=== PATIENT | female | born 1940 | race Caucasian/White ===

== ENCOUNTER 2017-11-03 08:42 | Day surgery (SDC) | payer MEDICARE ==
[~2017-11-03 08:42] MED LIST: CEPH250A; CONEST.625; DEPLIN-ALGAL O1 EAC1; ESCI10 PO; ESTROGEN GEL; ESZO3; GABA100 PO; HYDACE5; OMEP20ER PO; PANT40; ZOLP10
[2018-06-04] MEDS ORDERED: Cipro500 MG PO (15:59)
[2018-07-11] MEDS ORDERED: ESCI10 PO (13:36)
[2018-07-11] MEDS ORDERED: XARELTO20 MG PO (13:36)
[2018-07-11] MEDS ORDERED: BELSOMRA5 MG PO (13:37)
[2018-07-11] MEDS ORDERED: Roxicodone5 MG PO (13:38)
[2018-07-11] MEDS ORDERED: Ipratropium Bro15 ML (13:38)
[2018-07-11] MEDS ORDERED: GABA600 PO ×2 (13:39)
[2018-07-11] MEDS ORDERED: CHOL10002 PO (13:40)
[2018-07-11] MEDS ORDERED: BACL10 PO (13:40)
[2018-07-11] MEDS ORDERED: Cascara Sagrad473 ML PO (13:41)
[2018-07-11] MEDS ORDERED: BIOTIN2500 MCG PO (13:41)
[2018-07-11] MEDS ORDERED: CONEST.625 PO (13:42)
[2018-07-11] MEDS ORDERED: GENTEAL TEARS 015 M1 BOTHEYES (13:42)
[2018-07-11] MEDS ORDERED: VAGIFEM10 MCG VAG (13:43)
[2018-07-11] MEDS ORDERED: COQ1050 MG PO (13:43)
[2018-07-11] MEDS ORDERED: VITAMIN B122500 MC1 PO (13:43)
[2018-07-11] MEDS ORDERED: DIFICID200 MG PO (13:44)
[2018-07-11] MEDS ORDERED: [UNRECOGNIZED DRUG - OTHER] PO (13:44)
[2018-07-22] MEDS ORDERED: CILO100 PO (10:58)
[2018-07-22] MEDS ORDERED: VANC125 PO (10:59)
[2018-07-22] MEDS ORDERED: PANT40 PO (10:59)
[2018-07-22] MEDS ORDERED: VAGIFEM10 MCG VAG (18:29)
[2018-07-22] MEDS ORDERED: CONEST.625 PO (18:29)
[2018-07-22] MEDS ORDERED: BELSOMRA10 MG PO (18:30)
[2018-07-22] MEDS ORDERED: MIRALAX17 GM PO (18:31)
[2018-07-22] MEDS ORDERED: Hair, Skin & N1 EACH PO (18:34)
[2018-07-25] MEDS ORDERED: CIPR250 PO (11:41)
[2018-07-25] MEDS ORDERED: OSCIMIN SL0.125 MG SL (11:42)
[2018-07-25] MEDS ORDERED: ACIDOPHILUS1 EAC1 PO (11:43)
[2018-07-25] MEDS ORDERED: VANC125 PO (11:44)
[2018-07-25] MEDS ORDERED: POTCHL20ER PO (11:44)
[2018-07-25] MEDS ORDERED: LOPE2C PO (11:45)
== END 2017-11-03 22:38 | disposition home or self-care (01) ==
LOC: CT 08:42
PROVIDERS: Radiology Diagnostic Radiology
PROC: B02B1ZZ Computerized Tomography (CT Scan) of Spinal Cord using Low Osmolar Contrast (ICD-10-PCS; principal; 2017-11-03 11:00)
DX: M47.26 Other spondylosis with radiculopathy, lumbar region (principal); M51.16 Intervertebral disc disorders with radiculopathy, lumbar region; Z98.1 Arthrodesis status
CPT/HCPCS: 62304; 72132; Q9966

== ENCOUNTER → 2017-12-14 | Outpatient (CLI) | payer MEDICARE ==
[~2017-12-14] MED LIST changes: +ESCI10; -ESCI10 PO; +GABA100; -GABA100 PO
[2017-12-14 12:07] LABS: Source, Urine Clean Catch
[2017-12-14 14:09] LABS: Bilirubin, Urine Neg (Neg); Blood, Urine 1+ (Neg); Glucose Qualitative, Urine Neg (Neg); Ketones, Urine Neg (Neg); Leukocyte Esterase, Urine 2+ (Neg); Nitrite, Urine Neg (Neg); Protein, Urine Neg (Neg); Specific Gravity, Urine 1.015 (1.003-1.022); Urobilinogen, Urine NORM (Normal)
[2017-12-14 14:18] LABS: Appearance, Urine Clear (Clear); Color, Urine Yellow (P-Yellow)
[2017-12-14 14:19] LABS: Bacteria Few /hpf; Red Blood Cells, Urine 0-2 /hpf (0-2); Squamous Epithelial Cells Few /hpf (Few)
== END | disposition home or self-care (01) ==
LOC: OLS 12:05 → LAB SHORT 12:05 → EDSTATUS 12-14 11:50 → LAB FUT 12-14 11:50
PROVIDERS: Internal Medicine
DX: R31.9 Hematuria, unspecified (principal)
CPT/HCPCS: 81001; 87086

== ENCOUNTER → 2018-02-28 | Outpatient (CLI) | payer MEDICARE ==
[2018-02-28 14:41] LABS: Source, Urine Clean Catch
[2018-02-28 18:00] LABS: Bilirubin, Urine Neg (Neg); Blood, Urine 1+ (Neg); Glucose Qualitative, Urine Neg (Neg); Ketones, Urine Neg (Neg); Leukocyte Esterase, Urine Neg (Neg); Nitrite, Urine Neg (Neg); Protein, Urine Neg (Neg); Specific Gravity, Urine 1.015 (1.003-1.022); Urobilinogen, Urine NORM (Normal)
[2018-02-28 18:10] LABS: Appearance, Urine Clear (Clear); Color, Urine Yellow (P-Yellow)
[2018-02-28 18:12] LABS: Bacteria Few /hpf; Red Blood Cells, Urine 0-2 /hpf (0-2); Squamous Epithelial Cells Few /hpf (Few); White Blood Cells, Urine 0-2 /hpf (0-5)
== END | disposition home or self-care (01) ==
LOC: LAB 14:39 → LAB SHORT 14:39 → EDSTATUS 02-28 12:25 → LAB FUT 02-28 12:25
PROVIDERS: Internal Medicine
DX: R30.0 Dysuria (principal)
CPT/HCPCS: 81001

== ENCOUNTER 2018-03-07 08:01 | Day surgery (SDC) | payer MEDICARE ==
[~2018-03-07 08:01] MED LIST changes: -ESCI10; +ESCI10 PO; -GABA100; +GABA100 PO
[2018-03-07] MEDS ORDERED: Ipratropium Bro30 ML (10:53)
[2018-03-07] MEDS ORDERED: BIOTIN2500 MCG PO (10:54)
[2018-03-07] MEDS ORDERED: VITAMIN D2000 UNIT PO (10:54)
[2018-03-07] MEDS ORDERED: Cascara Sagrad473 ML PO (10:56)
[2018-03-07] MEDS ORDERED: GENTEAL TEARS 015 M1 BOTHEYES (10:56)
[2018-03-07] MEDS ORDERED: OXYC5 PO (10:57)
[2018-03-07] MEDS ORDERED: OXYC10ER (10:57)
[2018-03-07] MEDS ORDERED: VAGIFEM10 MCG VAG (11:00)
[2018-03-07] MEDS ORDERED: BELSOMRA10 MG PO (11:01)
== END 2018-03-07 09:18 | disposition home or self-care (01) ==
LOC: ATC 08:01
DX: R30.0 Dysuria (principal)
CPT/HCPCS: 51798

== ENCOUNTER → 2018-06-21 | Outpatient (CLI) | payer MEDICARE ==
[~2018-06-21] MED LIST changes: +BELSOMRA10 MG PO; +BIOTIN2500 MCG PO; +Cascara Sagrad473 ML PO; +Cipro500 MG PO; +GENTEAL TEARS 015 M1 BOTHEYES; +Ipratropium Bro30 ML; +OXYC10ER; +OXYC5 PO; +VAGIFEM10 MCG VAG; +VITAMIN D2000 UNIT PO
[2018-06-21 18:21] LABS: Adenovirus F 40/41 Not Detected (NOT DETECT); Astrovirus Not Detected (NOT DETECT); Campylobacter Sp Not Detected (NOT DETECT); Cryptosporidium Not Detected (NOT DETECT); Cyclospora Cayetanensis Not Detected (NOT DETECT); E. Coli O157 Not Detected (NOT DETECT); Entamoeba Histolytica Not Detected (NOT DETECT); Enteroaggregative E. coli-EAEC Not Detected (NOT DETECT); Enteropathogenic E. coli-EPEC Not Detected (NOT DETECT); Enterotoxigenic E. coli-ETEC Not Detected (NOT DETECT); Giardia Lamblia Not Detected (NOT DETECT); Norovirus GI/GII Not Detected (NOT DETECT); Plesiomonas Shigelloides Not Detected (NOT DETECT); Rotavirus A Not Detected (NOT DETECT); Salmonella Sp Not Detected (NOT DETECT); Sapovirus Not Detected (NOT DETECT); Shiga Toxin-prod E. coli-STEC Not Detected (NOT DETECT); Shigella/Enteroin E. coli-EIEC Not Detected (NOT DETECT); Vibrio Cholerae Not Detected (NOT DETECT); Vibrio Sp Not Detected (NOT DETECT); Yersinia Enterocolitica Not Detected (NOT DETECT)
== END | disposition home or self-care (01) ==
LOC: LAB 17:45 → LAB SHORT 17:45 → EDSTATUS 06-21 10:25 → LAB FUT 06-21 10:25
PROVIDERS: Internal Medicine
DX: R19.7 Diarrhea, unspecified (principal)
CPT/HCPCS: 87507

== ENCOUNTER → 2018-09-19 | Outpatient (CLI) | payer MEDICARE ==
[~2018-09-19] MED LIST changes: +ACIDOPHILUS1 EAC1 PO; +BACL10 PO; +BELSOMRA5 MG PO; +CHOL10002 PO; +CILO100 PO; +CIPR250 PO; +CONEST.625 PO; +COQ1050 MG PO; +DIFICID200 MG PO; +GABA600 PO; +Hair, Skin & N1 EACH PO; +Ipratropium Bro15 ML; +LOPE2C PO; +MIRALAX17 GM PO; +OSCIMIN SL0.125 MG SL; +PANT40 PO; +POTCHL20ER PO; +Roxicodone5 MG PO; +VANC125 PO; +VITAMIN B122500 MC1 PO; +XARELTO20 MG PO; +[UNRECOGNIZED DRUG - OTHER] PO
== END | disposition home or self-care (01) ==
LOC: LAB SHORT 13:00 → LAB 13:00 → EDSTATUS 09-18 08:25 → LAB FUT 09-18 08:25
DX: A04.72 Enterocolitis due to Clostridium difficile, not specified as recurrent (principal)
CPT/HCPCS: 87324; 89055

== ENCOUNTER → 2018-11-07 | Outpatient (CLI) | payer MEDICARE ==
[2018-11-07 15:53] LABS: Source, Urine Clean Catch
[2018-11-07 18:22] LABS: Bilirubin, Urine Neg (Neg); Blood, Urine 1+ (Neg); Glucose Qualitative, Urine Neg (Neg); Ketones, Urine Neg (Neg); Leukocyte Esterase, Urine 2+ (Neg); Nitrite, Urine Pos (Neg); Protein, Urine Neg (Neg); Urobilinogen, Urine NORM (Normal)
[2018-11-07 18:42] LABS: Appearance, Urine Hazy (Clear); Color, Urine Yellow (P-Yellow)
[2018-11-07 18:45] LABS: Amorphous Light (0-Heavy); Bacteria Few /hpf; Mucus Light (0-Heavy); Red Blood Cells, Urine 0-2 /hpf (0-2); Squamous Epithelial Cells Mod /hpf (Few); Transitional Epithelial Cells Few /hpf (0-Rare)
== END | disposition home or self-care (01) ==
LOC: LAB SHORT 15:51 → LAB 15:51 → LAB FUT 11-08 09:20 → EDSTATUS 11-08 09:20
PROVIDERS: Internal Medicine
DX: R30.0 Dysuria (principal)
CPT/HCPCS: 81001; 87077; 87086; 87186

== ENCOUNTER → 2018-12-01 | Outpatient (CLI) | payer MEDICARE ==
[2018-12-02 14:09] LABS: C DIFFICILE BY DNA AMP Positive (Negative)
== END | disposition home or self-care (01) ==
LOC: LAB 16:30 → LAB SHORT 16:30
PROVIDERS: Internal Medicine
DX: A04.71 Enterocolitis due to Clostridium difficile, recurrent (principal)
CPT/HCPCS: 87324; 87493

== ENCOUNTER → 2018-12-19 | Outpatient (CLI) | payer MEDICARE ==
[~2018-12-19] MED LIST changes: +ONDA4ODT MM
== END | disposition home or self-care (01) ==
LOC: LAB SHORT 15:10 → LAB 15:10 → LAB FUT 12-01 14:55 → EDSTATUS 12-01 14:55
DX: A04.71 Enterocolitis due to Clostridium difficile, recurrent (principal)
CPT/HCPCS: 87493; 89055

== ENCOUNTER 2018-12-23 17:08 | Emergency (ER) | payer MEDICARE ==
[~2018-12-23] VITALS: Ht 149.9 cm; Wt 43.5 kg
[~2018-12-23 17:08] MED LIST changes: -ONDA4ODT MM
[2018-12-23 19:03] LABS: BASOPHILS ABSOLUTE AUTO 0.02 K/mm3 (0.00-0.23); BASOPHILS PERCENT AUTO 0 % (0-2); EOSINOPHILS ABSOLUTE AUTO 0.02 K/mm3 (0.00-0.68); EOSINOPHILS PERCENT AUTO 0 % (0-6); Hematocrit 35.8 % (33.0-51.0); Hemoglobin 11.6 g/dL (11.5-16.0); IMMATURE GRAN ABSOLUTE AUTO 0.06 K/mm3 (0.00-0.10); IMMATURE GRAN PERCENT AUTO 0 % (0-1); LYMPHOCYTES ABSOLUTE AUTO 1.96 K/mm3 (0.84-5.20); LYMPHOCYTES PERCENT AUTO 14 % (21-46); MONOCYTES ABSOLUTE AUTO 0.82 K/mm3 (0.16-1.47); MONOCYTES PERCENT AUTO 6 % (4-13); Mean Corpuscular HGB 31.8 pg (26.0-34.0); Mean Corpuscular HGB Conc 32.4 g/dL (31.5-36.5); Mean Corpuscular Volume 98 fL (80-100); Mean Platelet Volume 10.4 fL (9.1-12.4); NEUTROPHILS PERCENT AUTO 79 % (41-73); Platelet Count 337 K/mm3 (150-400); RDW Coefficient Variation 13.5 % (11.7-14.2); RDW Standard Deviation 48.8 fL (35.1-46.3); Red Blood Cell Count 3.65 M/mm3 (3.80-5.20); White Blood Cell Count 13.68 K/mm3 (4.00-11.30)
[2018-12-23 19:28] LABS: Alanine Aminotransfer (ALT/SGP 14 U/L (12-78); Albumin, Blood 3.5 g/dL (3.4-5.0); Albumin/Globulin Ratio 0.9 (0.8-1.8); Alk Phos 74 U/L (50-136); Anion Gap 6 mmol/L (6-16); Aspartate Aminotrans (AST/SGOT 18 U/L (12-37); Bilirubin, Total 0.4 mg/dL (0.1-1.0); Blood Urea Nitrogen 16 mg/dL (8-24); CO2, Blood 26 mmol/L (21-32); Calcium, Blood 8.1 mg/dL (8.5-10.1); Chloride, Blood 105 mmol/L (98-108); Globulin, Blood 3.7 g/dL (2.2-4.0); Glomerular Filtration Rate >60 (60-); Glucose, Blood 96 mg/dL (70-99); Potassium, Blood 3.5 mmol/L (3.5-5.5); Sodium, Blood 137 mmol/L (136-145); Total Protein, Blood 7.2 g/dL (6.4-8.2)
[2018-12-23] MEDS ORDERED: ONDA4ODT MM (20:02)
== END 2018-12-23 20:36 | disposition home or self-care (01) ==
LOC: ER 17:08
PROVIDERS: Emergency Medicine
DX: E86.0 Dehydration (principal); R19.7 Diarrhea, unspecified; R11.2 Nausea with vomiting, unspecified; Z88.0 Allergy status to penicillin; Z88.2 Allergy status to sulfonamides; Z88.8 Allergy status to other drugs, medicaments and biological substances; Z79.899 Other long term (current) drug therapy; F17.210 Nicotine dependence, cigarettes, uncomplicated
CPT/HCPCS: 36415; 80053; 85025; 96361; 96374; 99284-25; A9270-GY; J2405; J7030

== ENCOUNTER → 2019-01-18 | Outpatient (CLI) | payer MEDICARE ==
[~2019-01-18] MED LIST changes: +ONDA4ODT MM
[2019-01-18 12:34] LABS: Source, Urine Clean Catch
[2019-01-18 15:38] LABS: Bilirubin, Urine Neg (Neg); Blood, Urine 3+ (Neg); Glucose Qualitative, Urine Neg (Neg); Ketones, Urine Neg (Neg); Leukocyte Esterase, Urine 3+ (Neg); Nitrite, Urine Neg (Neg); Protein, Urine Neg (Neg); Urobilinogen, Urine NORM (Normal)
[2019-01-18 15:46] LABS: Appearance, Urine Hazy (Clear); Color, Urine Yellow (P-Yellow)
[2019-01-18 15:48] LABS: White Blood Cells, Urine TNTC /hpf (0-5)
[2019-01-18 15:49] LABS: Bacteria Few /hpf; Squamous Epithelial Cells Few /hpf (Few); Transitional Epithelial Cells Few /hpf (0-Rare)
== END | disposition home or self-care (01) ==
LOC: LAB SHORT 12:34 → LAB 12:34 → LAB FUT 01-18 09:35
PROVIDERS: Internal Medicine
DX: N39.0 Urinary tract infection, site not specified (principal)
CPT/HCPCS: 81001

== ENCOUNTER 2019-01-20 07:37 | Emergency (ER) | payer MEDICARE ==
[~2019-01-20] VITALS: Ht 149.9 cm; Wt 43.1 kg
[2019-01-20] MEDS ORDERED: CEPH500 PO (07:55)
[2019-01-20] MEDS ORDERED: BUPRENORPHINE HC2 MG SL (08:04)
== END 2019-01-20 08:18 | disposition home or self-care (01) ==
LOC: ER 07:37
DX: N39.0 Urinary tract infection, site not specified (principal); Z88.0 Allergy status to penicillin; Z88.2 Allergy status to sulfonamides; Z88.8 Allergy status to other drugs, medicaments and biological substances; Z88.1 Allergy status to other antibiotic agents; Z79.899 Other long term (current) drug therapy; F17.210 Nicotine dependence, cigarettes, uncomplicated
CPT/HCPCS: 99283

== ENCOUNTER → 2019-01-26 | Outpatient (CLI) | payer MEDICARE ==
[~2019-01-26] MED LIST changes: +BUPRENORPHINE HC2 MG SL; +CEPH500 PO
[2019-01-26 17:24] LABS: Source, Urine Clean Catch
[2019-01-26 17:50] LABS: Blood, Urine 1+ (Neg); Glucose Qualitative, Urine Neg (Neg); Ketones, Urine Neg (Neg); Leukocyte Esterase, Urine Neg (Neg); Nitrite, Urine Neg (Neg); Protein, Urine 1+ (Neg); Urobilinogen, Urine NORM (Normal)
[2019-01-26 17:57] LABS: Appearance, Urine Clear (Clear); Bilirubin, Urine 2+ (Neg); Color, Urine Orange (P-Yellow)
[2019-01-26 17:58] LABS: Yeast/Fungi Urine Few /hpf
[2019-01-26 18:00] LABS: Red Blood Cells, Urine 0-2 /hpf (0-2)
[2019-01-26 18:05] LABS: Bacteria Few /hpf; Calcium Oxalate Crystals Few /hpf; Squamous Epithelial Cells Few /hpf (Few)
[2019-01-26 18:07] LABS: Other Crystals Few /hpf
== END | disposition home or self-care (01) ==
LOC: LAB SHORT 17:23 → LAB 17:23 → EDSTATUS 01-26 17:20 → LAB FUT 01-26 17:20
PROVIDERS: Internal Medicine
DX: N39.0 Urinary tract infection, site not specified (principal)
CPT/HCPCS: 81001

== ENCOUNTER → 2019-02-15 | Outpatient (CLI) | payer MEDICARE ==
[~2019-02-15] MED LIST changes: +Florastor250 MG PO; +HYOS.125 PO; +Ipratropium Bro30 ML NS; +Lexapro 10 mg T10 MG PO; +POTA10T PO; +POTCHL20ER; +VANCOCIN HCL125 MG GT
== END | disposition home or self-care (01) ==
LOC: LAB SHORT 15:00 → LAB 15:00 → LAB FUT 02-14 12:10
DX: A04.72 Enterocolitis due to Clostridium difficile, not specified as recurrent (principal)
CPT/HCPCS: 87493; 89055

== ENCOUNTER → 2019-03-12 | Outpatient (CLI) | payer MEDICARE ==
[2019-03-12 13:17] LABS: C DIFFICILE BY DNA AMP Positive (Negative)
== END | disposition home or self-care (01) ==
LOC: LAB 10:00 → LAB SHORT 10:00 → EDSTATUS 03-12 09:15 → LAB FUT 03-12 09:15
PROVIDERS: Internal Medicine Infectious Disease
DX: A04.72 Enterocolitis due to Clostridium difficile, not specified as recurrent (principal)
CPT/HCPCS: 87324; 87493; 89055

== ENCOUNTER → 2019-03-13 | Outpatient (CLI) | payer MEDICARE ==
[2019-03-14 07:15] LABS: C DIFFICILE BY DNA AMP Positive (Negative)
== END | disposition home or self-care (01) ==
LOC: LAB 11:30 → LAB SHORT 11:30
PROVIDERS: Internal Medicine Infectious Disease
DX: A04.72 Enterocolitis due to Clostridium difficile, not specified as recurrent (principal)
CPT/HCPCS: 87324; 87493

== ENCOUNTER 2019-03-14 09:20 | Emergency (ER) | payer MEDICARE ==
[~2019-03-14] VITALS: Ht 149.9 cm; Wt 42.6 kg
[~2019-03-14 09:20] MED LIST changes: -Florastor250 MG PO; -HYOS.125 PO; -Ipratropium Bro30 ML NS; -Lexapro 10 mg T10 MG PO; -POTA10T PO; -POTCHL20ER; -VANCOCIN HCL125 MG GT
[2019-03-14 10:42] LABS: BASOPHILS ABSOLUTE AUTO 0.04 K/mm3 (0.00-0.23); BASOPHILS PERCENT AUTO 1 % (0-2); EOSINOPHILS ABSOLUTE AUTO 0.06 K/mm3 (0.00-0.68); EOSINOPHILS PERCENT AUTO 1 % (0-6); Hemoglobin 11.8 g/dL (11.5-16.0); IMMATURE GRAN ABSOLUTE AUTO 0.12 K/mm3 (0.00-0.10); IMMATURE GRAN PERCENT AUTO 1 % (0-1); LYMPHOCYTES ABSOLUTE AUTO 1.85 K/mm3 (0.84-5.20); LYMPHOCYTES PERCENT AUTO 22 % (21-46); MONOCYTES ABSOLUTE AUTO 0.98 K/mm3 (0.16-1.47); MONOCYTES PERCENT AUTO 11 % (4-13); Mean Corpuscular HGB 31.6 pg (26.0-34.0); Mean Corpuscular HGB Conc 31.9 g/dL (31.5-36.5); Mean Corpuscular Volume 99 fL (80-100); Mean Platelet Volume 9.3 fL (9.1-12.4); NEUTROPHILS ABSOLUTE AUTO 5.53 K/mm3 (1.96-9.15); NEUTROPHILS PERCENT AUTO 64 % (41-73); Platelet Count 443 K/mm3 (150-400); RDW Coefficient Variation 13.7 % (11.7-14.2); RDW Standard Deviation 49.9 fL (35.1-46.3); Red Blood Cell Count 3.73 M/mm3 (3.80-5.20); White Blood Cell Count 8.58 K/mm3 (4.00-11.30)
[2019-03-14] MEDS ORDERED: Florastor250 MG PO (10:49)
[2019-03-14] MEDS ORDERED: HYOS.125 PO (10:49)
[2019-03-14] MEDS ORDERED: GABA600 PO (10:49)
[2019-03-14] MEDS ORDERED: Ipratropium Bro30 ML NS (10:49)
[2019-03-14] MEDS ORDERED: PANT40 PO (10:50)
[2019-03-14] MEDS ORDERED: Lexapro 10 mg T10 MG PO (10:50)
[2019-03-14] MEDS ORDERED: POTA10T PO (10:50)
[2019-03-14] MEDS ORDERED: POTCHL20ER (10:50)
[2019-03-14 11:02] LABS: Alanine Aminotransfer (ALT/SGP 32 U/L (12-78); Albumin, Blood 3.5 g/dL (3.4-5.0); Albumin/Globulin Ratio 0.9 (0.8-1.8); Alk Phos 85 U/L (50-136); Anion Gap 7 mmol/L (6-16); Aspartate Aminotrans (AST/SGOT 33 U/L (12-37); Bilirubin, Total 0.3 mg/dL (0.1-1.0); Blood Urea Nitrogen 10 mg/dL (8-24); CO2, Blood 26 mmol/L (21-32); Calcium, Blood 8.6 mg/dL (8.5-10.1); Chloride, Blood 105 mmol/L (98-108); Creatinine, Blood 0.77 mg/dL (0.40-1.00); Globulin, Blood 3.9 g/dL (2.2-4.0); Glomerular Filtration Rate >60 (60-); Glucose, Blood 89 mg/dL (70-99); Potassium, Blood 3.4 mmol/L (3.5-5.5); Sodium, Blood 138 mmol/L (136-145); Total Protein, Blood 7.4 g/dL (6.4-8.2); Troponin I <0.015 ng/mL (0.000-0.040)
[2019-03-14] MEDS ORDERED: VANCOCIN HCL125 MG GT (11:30)
== END 2019-03-14 13:53 | disposition home or self-care (01) ==
LOC: ER 09:20
PROVIDERS: Emergency Medicine
DX: S51.811A Laceration without foreign body of right forearm, initial encounter (principal); E87.6 Hypokalemia; E86.0 Dehydration; A04.72 Enterocolitis due to Clostridium difficile, not specified as recurrent; W19.XXXA Unspecified fall, initial encounter; Z88.0 Allergy status to penicillin; Z88.2 Allergy status to sulfonamides; Z88.1 Allergy status to other antibiotic agents; Z79.899 Other long term (current) drug therapy; Z88.8 Allergy status to other drugs, medicaments and biological substances; F32.9 Major depressive disorder, single episode, unspecified; F17.210 Nicotine dependence, cigarettes, uncomplicated
CPT/HCPCS: 36415; 80053; 84484; 85025; 90471; 90714; 93005; 93010; 96360; 99284-25; J7120

== ENCOUNTER → 2019-03-17 | Outpatient (CLI) | payer MEDICARE ==
[~2019-03-17] MED LIST changes: +Florastor250 MG PO; +HYOS.125 PO; +Ipratropium Bro30 ML NS; +Lexapro 10 mg T10 MG PO; +POTA10T PO; +POTCHL20ER; +VANCOCIN HCL125 MG GT
== END | disposition home or self-care (01) ==
LOC: LAB SHORT 17:11 → LAB EV 17:11
DX: L03.90 Cellulitis, unspecified (principal)
CPT/HCPCS: 87070; 87205

== ENCOUNTER 2019-03-29 07:30 | Day surgery (SDC) | payer MEDICARE | END 2019-03-29 23:06 | disposition home or self-care (01) | LOC: WOUND 07:30 | DX: S51.801A Unspecified open wound of right forearm, initial encounter (principal); J44.9 Chronic obstructive pulmonary disease, unspecified; I73.9 Peripheral vascular disease, unspecified | CPT/HCPCS: G0463 ==

== ENCOUNTER 2019-04-05 07:40 | Day surgery (SDC) | payer MEDICARE | END 2019-04-05 23:31 | disposition home or self-care (01) | LOC: WOUND 07:40 | DX: S41.101A Unspecified open wound of right upper arm, initial encounter (principal); I48.91 Unspecified atrial fibrillation; W19.XXXA Unspecified fall, initial encounter | CPT/HCPCS: G0463 ==

== ENCOUNTER → 2019-04-05 | Outpatient (CLI) | payer MEDICARE | END | disposition home or self-care (01) | LOC: LAB SHORT 11:21 → PLD 11:21 | DX: D22.72 Melanocytic nevi of left lower limb, including hip (principal) | CPT/HCPCS: 88305 ==

== ENCOUNTER 2019-04-10 14:13 | Day surgery (SDC) | payer MEDICARE | END 2019-04-10 23:00 | disposition home or self-care (01) | LOC: WOUND 14:13 | DX: S51.801A Unspecified open wound of right forearm, initial encounter (principal); I48.91 Unspecified atrial fibrillation; I73.9 Peripheral vascular disease, unspecified; W19.XXXA Unspecified fall, initial encounter; Y92.002 Bathroom of unspecified non-institutional (private) residence as the place of occurrence of the external cause ==

== ENCOUNTER → 2019-04-16 | Outpatient (CLI) | payer MEDICARE | LOC: LAB SHORT 12:45 → LAB 12:45 → LAB FUT 03-12 10:50 | DX: A04.72 Enterocolitis due to Clostridium difficile, not specified as recurrent (principal) | CPT/HCPCS: 87493 ==

== ENCOUNTER 2019-04-19 00:14 | Day surgery (SDC) | payer MEDICARE | END 2019-04-19 22:47 | disposition home or self-care (01) | LOC: WOUND 00:14 | DX: S51.801D Unspecified open wound of right forearm, subsequent encounter (principal); J44.9 Chronic obstructive pulmonary disease, unspecified | CPT/HCPCS: G0463 ==

== ENCOUNTER 2019-05-01 00:04 | Day surgery (SDC) | payer MEDICARE | END 2019-05-01 22:39 | disposition home or self-care (01) | LOC: WOUND 00:04 | DX: S41.101D Unspecified open wound of right upper arm, subsequent encounter (principal); J44.9 Chronic obstructive pulmonary disease, unspecified; M79.7 Fibromyalgia; I73.9 Peripheral vascular disease, unspecified | CPT/HCPCS: G0463 ==

== ENCOUNTER → 2019-05-17 | Outpatient (CLI) | payer MEDICARE | LOC: LAB 08:50 → LAB SHORT 08:50 | DX: A04.72 Enterocolitis due to Clostridium difficile, not specified as recurrent (principal) | CPT/HCPCS: 87493 ==

== ENCOUNTER → 2019-08-05 | Outpatient (CLI) | payer MEDICARE | END | disposition home or self-care (01) | LOC: LAB EV 16:24 → LAB SHORT 16:24 | DX: N39.0 Urinary tract infection, site not specified (principal) | CPT/HCPCS: 87077; 87086; 87186 ==

== ENCOUNTER → 2019-08-11 | Outpatient (CLI) | payer MEDICARE ==
[2019-08-12 10:29] LABS: Campylobacter Sp Not Detected (NOT DETECT); Enteroaggregative E. coli-EAEC Not Detected (NOT DETECT); Enteropathogenic E. coli-EPEC Not Detected (NOT DETECT); Enterotoxigenic E. coli-ETEC Not Detected (NOT DETECT); Plesiomonas Shigelloides Not Detected (NOT DETECT); Salmonella Sp Not Detected (NOT DETECT); Shiga Toxin-prod E. coli-STEC Not Detected (NOT DETECT); Vibrio Cholerae Not Detected (NOT DETECT); Vibrio Sp Not Detected (NOT DETECT); Yersinia Enterocolitica Not Detected (NOT DETECT)
[2019-08-12 10:30] LABS: Adenovirus F 40/41 Not Detected (NOT DETECT); Astrovirus Not Detected (NOT DETECT); Cryptosporidium Not Detected (NOT DETECT); Cyclospora Cayetanensis Not Detected (NOT DETECT); E. Coli O157 Not Detected (NOT DETECT); Entamoeba Histolytica Not Detected (NOT DETECT); Giardia Lamblia Not Detected (NOT DETECT); Norovirus GI/GII Not Detected (NOT DETECT); Rotavirus A Not Detected (NOT DETECT); Sapovirus Not Detected (NOT DETECT); Shigella/Enteroin E. coli-EIEC Not Detected (NOT DETECT)
== END ==
LOC: LAB 18:20 → LAB SHORT 18:20
PROVIDERS: Emergency Medicine
DX: R19.7 Diarrhea, unspecified (principal)
CPT/HCPCS: 0097U; 87324

== ENCOUNTER → 2019-12-22 | Outpatient (CLI) | payer MEDICARE ==
[2019-12-22 12:52] LABS: Adenovirus F 40/41 Not Detected (NOT DETECT); Astrovirus Not Detected (NOT DETECT); Campylobacter Sp Not Detected (NOT DETECT); Cryptosporidium Not Detected (NOT DETECT); Cyclospora Cayetanensis Not Detected (NOT DETECT); E. Coli O157 Not Detected (NOT DETECT); Entamoeba Histolytica Not Detected (NOT DETECT); Enteroaggregative E. coli-EAEC Not Detected (NOT DETECT); Enteropathogenic E. coli-EPEC Not Detected (NOT DETECT); Enterotoxigenic E. coli-ETEC Not Detected (NOT DETECT); Giardia Lamblia Not Detected (NOT DETECT); Norovirus GI/GII Not Detected (NOT DETECT); Plesiomonas Shigelloides Not Detected (NOT DETECT); Rotavirus A Not Detected (NOT DETECT); Salmonella Sp Not Detected (NOT DETECT); Sapovirus Not Detected (NOT DETECT); Shiga Toxin-prod E. coli-STEC Not Detected (NOT DETECT); Shigella/Enteroin E. coli-EIEC Not Detected (NOT DETECT); Vibrio Cholerae Not Detected (NOT DETECT); Vibrio Sp Not Detected (NOT DETECT); Yersinia Enterocolitica Not Detected (NOT DETECT)
== END | disposition home or self-care (01) ==
LOC: LAB SHORT 10:28 → OLS 10:28
PROVIDERS: Internal Medicine
DX: R19.7 Diarrhea, unspecified (principal)
CPT/HCPCS: 0097U; 87324

== ENCOUNTER → 2020-01-26 | Outpatient (CLI) | payer MEDICARE | END | disposition home or self-care (01) | LOC: LAB SHORT 13:53 → OLS 13:53 → LAB FUT 12-20 10:05 → EDSTATUS 12-20 10:05 | PROVIDERS: Internal Medicine Infectious Disease | DX: A04.72 Enterocolitis due to Clostridium difficile, not specified as recurrent (principal) | CPT/HCPCS: 87324; 87493 ==

== ENCOUNTER → 2020-04-22 | Outpatient (CLI) | payer MEDICARE | END | disposition home or self-care (01) | LOC: LAB 10:30 | DX: A04.72 Enterocolitis due to Clostridium difficile, not specified as recurrent (principal) | CPT/HCPCS: 87493 ==

== ENCOUNTER → 2020-07-12 | Outpatient (CLI) | payer MEDICARE | END | disposition home or self-care (01) | LOC: LAB SHORT 10:00 → PLD 10:00 → OLS 10:00 | PROVIDERS: Internal Medicine Gastroenterology | DX: R19.7 Diarrhea, unspecified (principal) | CPT/HCPCS: 82710 ==

== ENCOUNTER → 2020-07-13 | Outpatient (CLI) | payer MEDICARE | END | disposition home or self-care (01) | LOC: PLD 10:31 → LAB SHORT 10:31 → LAB FUT 07-07 13:40 | DX: K52.9 Noninfective gastroenteritis and colitis, unspecified (principal) | CPT/HCPCS: 83993; 87015; 87045; 87046; 87177; 87205; 87209; 87899 ==

== ENCOUNTER → 2020-07-14 | Outpatient (CLI) | payer MEDICARE | LOC: PLD 10:43 → LAB SHORT 10:43 | PROVIDERS: Internal Medicine Gastroenterology | DX: K52.9 Noninfective gastroenteritis and colitis, unspecified (principal) | CPT/HCPCS: 82656 ==

== ENCOUNTER 2020-09-04 11:12 | Day surgery (SDC) | payer MEDICARE ==
[~2020-09-04] VITALS: Ht 149.9 cm; Wt 37.8 kg
--- NOTE | 2020-09-04 12:04 | NUR ---
09/04/20 1204 Jaz Rubalcava CALL LIGHT WITHIN REACH
[2020-09-04] MEDS ORDERED: XARELTO20 MG PO (12:10)
[2020-09-04] MEDS ORDERED: WIXELA 250-501 EAC1 (12:10)
[2020-09-04] MEDS ORDERED: TRAZ100 PO (12:10)
[2020-09-04] MEDS ORDERED: PROAIR RESPICL90 MCG IH (12:11)
[2020-09-04] MEDS ORDERED: ONDA4 (12:12)
[2020-09-04] MEDS ORDERED: CONEST.625 PO (12:12)
--- NOTE | 2020-09-04 13:26 | NUR ---
09/04/20 1326 SHAGGY GARLAND 48 AND 52 USED FOR DILATION. 5ML NS USED TO ELEVATED DUODENAL POLYP
== END 2020-09-04 14:05 | disposition home or self-care (01) ==
LOC: ORSCSDS 11:12
PROVIDERS: Internal Medicine Gastroenterology
PROC: 0DB98ZX Excision of Duodenum, Via Natural or Artificial Opening Endoscopic, Diagnostic (ICD-10-PCS; principal; 2020-09-04 12:30)
PROC: 0D758ZZ Dilation of Esophagus, Via Natural or Artificial Opening Endoscopic (ICD-10-PCS; principal; 2020-09-04 12:30)
PROC: 0DBA8ZX Excision of Jejunum, Via Natural or Artificial Opening Endoscopic, Diagnostic (ICD-10-PCS; principal; 2020-09-04 12:30)
PROC: 0D757ZZ Dilation of Esophagus, Via Natural or Artificial Opening (ICD-10-PCS; principal; 2020-09-04 12:30)
PROC: 0DB78ZX Excision of Stomach, Pylorus, Via Natural or Artificial Opening Endoscopic, Diagnostic (ICD-10-PCS; principal; 2020-09-04 12:30)
DX: R63.4 Abnormal weight loss (principal); R13.10 Dysphagia, unspecified; C7A.8 Other malignant neuroendocrine tumors; R19.7 Diarrhea, unspecified; R11.0 Nausea; J44.9 Chronic obstructive pulmonary disease, unspecified; E78.5 Hyperlipidemia, unspecified; F17.210 Nicotine dependence, cigarettes, uncomplicated; Z79.01 Long term (current) use of anticoagulants; Z79.899 Other long term (current) drug therapy
CPT/HCPCS: 88305; 88342; J2704; J7120

== ENCOUNTER → 2020-10-27 | Outpatient (CLI) | payer MEDICARE ==
[~2020-10-27] MED LIST changes: +ONDA4; +PROAIR RESPICL90 MCG IH; +TRAZ100 PO; +WIXELA 250-501 EAC1
[2020-10-30 08:46] LABS: C DIFFICILE DNA POSITIVE (Negative)
== END | disposition home or self-care (01) ==
LOC: LAB SHORT 11:00 → LAB 11:00 → LAB FUT 10-21 15:25
PROVIDERS: Internal Medicine Gastroenterology
DX: K52.9 Noninfective gastroenteritis and colitis, unspecified (principal)
CPT/HCPCS: 82656; 87324; 87493

== ENCOUNTER → 2020-10-31 | Outpatient (CLI) | payer MEDICARE | END | disposition home or self-care (01) | LOC: LAB SHORT 08:30 → PLD 08:30 | DX: K52.9 Noninfective gastroenteritis and colitis, unspecified (principal) | CPT/HCPCS: 87177; 87209 ==

== ENCOUNTER → 2020-11-07 | Outpatient (CLI) | payer MEDICARE | LOC: OLS 09:45 → LAB SHORT 09:45 → LAB FUT 11-06 07:50 | DX: A04.72 Enterocolitis due to Clostridium difficile, not specified as recurrent (principal) | CPT/HCPCS: 87230 ==

== ENCOUNTER 2020-12-11 13:06 | Day surgery (SDC) | payer MEDICARE ==
[~2020-12-11] VITALS: Ht 149.9 cm; Wt 34.1 kg
--- NOTE | 2020-12-11 15:28 | NUR ---
12/11/20 1528 Jessi Gutiérrez LATE ENTRY ZOFRAN 4MG IV GIVEN FOR NAUSEA. NAUSEA RESOLVED APPROXIMATELY 15 MINUTES AFTER ZOFRAN GIVEN.
== END 2020-12-11 15:20 | disposition home or self-care (01) ==
LOC: ORSCSDS 13:06
PROVIDERS: Internal Medicine Gastroenterology
PROC: 0DBE8ZX Excision of Large Intestine, Via Natural or Artificial Opening Endoscopic, Diagnostic (ICD-10-PCS; principal; 2020-12-11 14:30)
PROC: 0DBL8ZX Excision of Transverse Colon, Via Natural or Artificial Opening Endoscopic, Diagnostic (ICD-10-PCS; principal; 2020-12-11 14:30)
DX: R19.7 Diarrhea, unspecified (principal); Z86.010 Personal history of colon polyps; D12.3 Benign neoplasm of transverse colon; I48.0 Paroxysmal atrial fibrillation; Z79.01 Long term (current) use of anticoagulants; J44.9 Chronic obstructive pulmonary disease, unspecified; F17.210 Nicotine dependence, cigarettes, uncomplicated; Z79.899 Other long term (current) drug therapy
CPT/HCPCS: 88305; J2405; J2704; J2710; J7120

== ENCOUNTER → 2021-12-11 | Outpatient (CLI) | payer MEDICARE ==
[2021-12-11 14:54] LABS: Source, Urine Clean Catch
[2021-12-11 17:24] LABS: Appearance, Urine Clear (Clear); Bilirubin, Urine Neg (Neg); Blood, Urine 1+ (Neg); Color, Urine Yellow (P-Yellow); Glucose Qualitative, Urine Neg (Neg); Ketones, Urine Neg (Neg); Leukocyte Esterase, Urine Neg (Neg); Nitrite, Urine Neg (Neg); Protein, Urine 1+ (Neg); Urobilinogen, Urine NORM (Normal)
[2021-12-11 18:19] LABS: Bacteria Few /hpf; Squamous Epithelial Cells Few /hpf (Few); White Blood Cells, Urine 0-2 /hpf (0-5)
== END | disposition home or self-care (01) ==
LOC: LAB 14:52 → LAB SHORT 14:52
PROVIDERS: Internal Medicine
DX: R30.0 Dysuria (principal)
CPT/HCPCS: 81001

== ENCOUNTER 2022-01-15 07:44 | Day surgery (SDC) | payer MEDICARE ==
[~2022-01-15] VITALS: Ht 149.9 cm; Wt 34.3 kg
== END 2022-01-15 10:15 | disposition home or self-care (01) ==
LOC: ORSCSDS 07:44
PROVIDERS: Internal Medicine Gastroenterology
PROC: 0DJD8ZZ Inspection of Lower Intestinal Tract, Via Natural or Artificial Opening Endoscopic (ICD-10-PCS; principal; 2022-01-15 09:00)
DX: K62.89 Other specified diseases of anus and rectum (principal); K59.09 Other constipation; D50.9 Iron deficiency anemia, unspecified; Z79.01 Long term (current) use of anticoagulants; Z79.899 Other long term (current) drug therapy
CPT/HCPCS: J2405; J2704; J7120

== ENCOUNTER 2022-11-20 10:16 | Emergency (ER) | payer MEDICARE ==
[~2022-11-20] VITALS: Ht 149.9 cm; Wt 33.6 kg
[~2022-11-20 10:16] MED LIST changes: +GABA300 PO
[2022-11-20] MEDS ORDERED: HYDROCODONE-AC1 EAC7 PO (10:35)
[2022-11-20] MEDS ORDERED: TIOT18 INH (10:35)
[2022-11-20] MEDS ORDERED: LUBIPROSTONE24 MC8 PO (10:57)
[2022-11-20] MEDS ORDERED: EVEROLIMUS PO (10:58)
[2022-11-20] MEDS ORDERED: OLAN2.5 PO (10:59)
[2022-11-20] MEDS ORDERED: BUSP5 PO (11:00)
[2022-11-20 11:04] LABS: BASOPHILS ABSOLUTE AUTO 0.03 K/mm3 (0.00-0.23); BASOPHILS PERCENT AUTO 0 % (0-2); EOSINOPHILS ABSOLUTE AUTO 0.03 K/mm3 (0.00-0.68); EOSINOPHILS PERCENT AUTO 0 % (0-6); Hematocrit 44.3 % (33.0-51.0); Hemoglobin 15.3 g/dL (11.5-16.0); IMMATURE GRAN ABSOLUTE AUTO 0.02 K/mm3 (0.00-0.10); IMMATURE GRAN PERCENT AUTO 0 % (0-1); LYMPHOCYTES PERCENT AUTO 27 % (21-46); MONOCYTES ABSOLUTE AUTO 0.75 K/mm3 (0.16-1.47); MONOCYTES PERCENT AUTO 8 % (4-13); Mean Corpuscular HGB 28.9 pg (26.0-34.0); Mean Corpuscular HGB Conc 34.5 g/dL (31.5-36.5); Mean Corpuscular Volume 84 fL (80-100); Mean Platelet Volume 9.8 fL (9.1-12.4); NEUTROPHILS ABSOLUTE AUTO 5.69 K/mm3 (1.96-9.15); NEUTROPHILS PERCENT AUTO 64 % (41-73); Platelet Count 277 K/mm3 (150-400); RDW Coefficient Variation 13.1 % (11.7-14.2); RDW Standard Deviation 39.8 fL (35.1-46.3); Red Blood Cell Count 5.29 M/mm3 (3.80-5.20); White Blood Cell Count 8.92 K/mm3 (4.00-11.30)
[2022-11-20 11:21] LABS: Albumin, Blood 3.6 g/dL (3.4-5.0); Albumin/Globulin Ratio 0.9 (0.8-1.8); Bilirubin, Total 0.5 mg/dL (0.1-1.0); Bun/Creatinine Ratio 53.1 (12.0-20.0); Creatinine, Blood 0.72 mg/dL (0.40-1.00); Globulin, Blood 3.9 g/dL (2.2-4.0); Potassium, Blood 3.5 mmol/L (3.5-5.5); Total Protein, Blood 7.5 g/dL (6.4-8.2)
[2022-11-20] MEDS ORDERED: OXYC5 PO (11:59)
[2022-11-20] MEDS ORDERED: NARCAN4 M1 INH (11:59)
[2022-11-23] MEDS ORDERED: ATROPINE SULFATE2 M1 SL (14:46)
[2022-11-23] MEDS ORDERED: Ativan1 MG PO (14:47)
[2022-11-23] MEDS ORDERED: TRANSDERM-SCOP1 EA10 TD (14:49)
[2022-11-23] MEDS ORDERED: MORP20L SL (14:49)
== END 2022-11-20 13:25 | disposition home or self-care (01) ==
LOC: ER 10:16
PROVIDERS: Emergency Medicine
DX: K62.89 Other specified diseases of anus and rectum (principal)
CPT/HCPCS: 80053; 85025; 96374; 96376; 99284-25; J2270